=== PATIENT | male | born 1955 | race African-American/Black ===

== ENCOUNTER → 2019-04-28 | Day surgery (SDC) | payer OTHER ==
[~2019-04-28] MED LIST: AMIT100T PO; AMLO-427 PO; ASPI81TA59 PO; ATOR20TA PO; IV RINGERS,LACTATED 1000ML 1,000 ML IV SCH; LIDOCAINE 2% PF 5 ML VIAL. ONE; OMEP20TA63 PO; POTA10TA12 PO; PROPOFOL 40 ML IV ONE; TAMS0.4C97 PO
[2019-04-28 08:20] VITALS: BP 109/72
== END ==
LOC: ENDOS 06:46
PROVIDERS: ATTEND Internal Medicine Gastroenterology
DX: R11.2 Nausea with vomiting, unspecified (principal); K29.50 Unspecified chronic gastritis without bleeding; K64.0 First degree hemorrhoids; K63.89 Other specified diseases of intestine; Z88.8 Allergy status to other drugs, medicaments and biological substances; Z79.82 Long term (current) use of aspirin; Z98.890 Other specified postprocedural states
CPT/HCPCS: 43235; 45378; J2001; J2704

== ENCOUNTER → 2019-05-15 | Outpatient (CLI) | payer OTHER ==
[2019-04-28 08:20] VITALS: BP 109/72
[~2019-05-15] MED LIST changes: -IV RINGERS,LACTATED 1000ML 1,000 ML IV SCH; -LIDOCAINE 2% PF 5 ML VIAL. ONE; -PROPOFOL 40 ML IV ONE
--- NOTE | 2019-05-15 12:32 | RAD ---
EXAM: Nuclear gastric emptying scan. HISTORY: Nausea and vomiting. COMPARISON: None. TECHNIQUE: Serial static images were obtained over the stomach following oral administration of 2 mCi of 99m-Tc sulfur colloid. FINDINGS: The stomach empties into the small bowel without evidence of reflux in the area of the esophagus. The estimated time for half emptying of gastric contents, i.e. 'gastric emptying time' is 37 minutes (normal is 66 +/- 22 minutes). There is 34 percent retained tracer activity within the stomach at one hour, 20 percent retained tracer activity at 2 hours, 4 percent retained tracer activity at 3 hours and 0 percent retained tracer activity at 4 hours. IMPRESSION: Normal gastric emptying scan. Electronically signed by: Daisy Mccarthy MD (05/15/2019 12:29 PM) [email or web address]
== END ==
LOC: NM 09:05
PROVIDERS: ATTEND Internal Medicine Gastroenterology
DX: K21.9 Gastro-esophageal reflux disease without esophagitis (principal)
CPT/HCPCS: 78264; A9541

== ENCOUNTER 2020-10-24 18:24 | Emergency (ER) | payer OTHER ==
[~2020-10-24] VITALS: Ht 165.1 cm; Wt 79.0 kg
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
--- NOTE | 2020-10-24 18:43 | EKG ---
[facility] [address] [place] [address] Test Date: 2020-10-24 Test Time: 18:37:26 Pat Name: CESIA GARCIA Department: Room: Gender: M Tank Crewmember: : [id number] Requested By: NETTIE EL Order Number: [id number] Reading MD: Measurements Intervals [place] Rate: 69 P: 36 ID: [id number] QRS: -31 QRSD: 100 T: 15 QT: 418 QTc: 449 Interpretive Statements SINUS RHYTHM ABNORMAL LEFT AXIS DEVIATION R-S TRANSITION ZONE IN V LEADS DISPLACED TO THE RIGHT LEFT ANTERIOR FASCICULAR BLOCK INCOMPLETE RIGHT BUNDLE BRANCH BLOCK NON SPECIFIC T ABNORMALITY ABNORMAL ECG RI6.02 No previous ECG available for comparison
[2020-10-24 18:49] LABS: BASO # 0.1 x10^3/uL (0.0-0.2); BASO % 1 % (0-3); EOS # 0.1 x10^3/uL (0.0-0.7); EOS % 1 % (0-3); HEMATOCRIT 40.1 % (39.0-53.0); HEMOGLOBIN 13.5 g/dL (13.0-17.5); LYMPH # 1.7 x10^3/uL (1.0-4.8); LYMPH % 28 % (24-48); MEAN CORPUSCULAR HEMOGLOBIN 28 pg (25-35); MEAN CORPUSCULAR HGB CONC 34 g/dL (31-37); MEAN CORPUSCULAR VOLUME 84 fL (79-100); MONO # 0.5 x10^3/uL (0.0-1.1); MONO % 8 % (0-9); NEUT # 3.7 x10^3/uL (1.8-7.7); NEUT % 62 % (31-73); PLATELET COUNT 381 x10^3/uL (140-400); RED CELL DISTRIBUTION WIDTH 15.9 % (11.5-14.5)
[2020-10-24 19:07] LABS: ALBUMIN 3.1 g/dL (3.4-5.0); ALBUMIN/GLOBULIN RATIO 0.8 (1.0-1.7); CALCIUM 8.8 mg/dL (8.5-10.1); CREATININE 1.1 mg/dL (0.7-1.3); GFR 81.5; TOTAL BILIRUBIN 0.6 mg/dL (0.2-1.0); TOTAL PROTEIN 6.9 g/dL (6.4-8.2)
[2020-10-24 19:11] LABS: POTASSIUM 2.9 mmol/L (3.5-5.1)
[2020-10-24] MEDS ORDERED: CONTRAST GIVEN. MC PRN (19:15)
[2020-10-24] MEDS ORDERED: IOHEXOL 350 MG/ML 100 ML VIAL. IV ONE (19:15)
[2020-10-24] MEDS ORDERED: MORPHINE SULFATE 4 MG/ML INJ. IVP ONE ×2 (19:15→21:15)
[2020-10-24] MEDS ORDERED: CLINDAMYCIN 600MG PREMIX 50 ML IV ONE (19:15)
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
[2020-10-24] MEDS: POTASSIUM CHLORIDE 10MEQ 100 ML IV SCH ×2 (19:43→20:59)
[2020-10-24] MEDS ORDERED: IV NORMAL SALINE 1000ML BAG 1,000 ML IV ONE (20:15)
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
[2020-10-24] MEDS ORDERED: hydrALAZINE 20 MG/ML VIAL. ONE (21:14)
[2020-10-24] MEDS ORDERED: DIPH,PERTUSS(ACELL),TET VAC/PF 0.5 ML SYRINGE. VAX IM ONE (21:15)
[2020-10-24 21:19] VITALS: BP 183/110
[2020-10-24] MEDS ORDERED: hydrALAZINE 20 MG/ML VIAL. IVP ONE (21:45)
== END 2020-10-24 21:50 | disposition short-term general hospital (02) ==
LOC: ER 18:24
DX: S82.202A Unspecified fracture of shaft of left tibia, initial encounter for closed fracture (principal); S85.132A Unspecified injury of anterior tibial artery, left leg, initial encounter; S91.032A Puncture wound without foreign body, left ankle, initial encounter; I10 Essential (primary) hypertension; Z20.822 Contact with and (suspected) exposure to COVID-19; X95.8XXA Assault by other firearm discharge, initial encounter; Y93.89 Activity, other specified; Y92.89 Other specified places as the place of occurrence of the external cause; Y99.8 Other external cause status
CPT/HCPCS: 29515; 36415; 73590; 73610; 73630; 73706; 80053; 85025; 87426; 90471; 90715; 93005; 96361; 96365; 96375; 96376; 99285; J0360; J2270; J3480; J3490; J7030; Q9967; U0003; U0005